=== PATIENT | male | born 1990 ===

== ENCOUNTER 2020-11-18 14:09 | Emergency (ER) | payer MEDICAID ==
[~2020-11-18] VITALS: Ht 177.8 cm; Wt 70.6 kg
[2020-11-18 14:27] VITALS: BP 135/105
--- NOTE | 2020-11-18 14:49 | NUR ---
COUNTER CHECKER: PT TO ROOM FROM [facility]
[2020-11-18] MEDS ORDERED: PERMETHRIN CRM 5%, 60GM TP ONE (15:00)
--- NOTE | 2020-11-18 15:29 | NUR ---
Pt given medication. Pt aware to go home wash all clothes and linis. Applye cream to entire body and follow up with primary care.
== END 2020-11-18 15:31 | disposition home or self-care (01) ==
LOC: ED 14:20
DX: L30.9 Dermatitis, unspecified (principal)
CPT/HCPCS: 99282

== ENCOUNTER 2020-11-22 15:05 | Emergency (ER) | payer MEDICAID ==
[~2020-11-22] VITALS: Ht 177.8 cm; Wt 72.6 kg
--- NOTE | 2020-11-22 15:28 | NUR ---
PT CHANGED INTO GOWN, MONITORS IN PLACE. PT STATES BUGS ARE VERY PRESISTENT AND COMING OUT OF HIS FEET AND ARMS. HE HAD TO SPRAY HIMSELF & HIS VAN DOWN WITH BLEACH. CALL LIGHT WITHIN REACH
--- NOTE | 2020-11-22 15:34 | NUR ---
PA AT BS
[2020-11-22 16:21] VITALS: BP 130/71
== END 2020-11-22 16:23 | disposition home or self-care (01) ==
LOC: ED 16:15
DX: F15.10 Other stimulant abuse, uncomplicated (principal); B35.3 Tinea pedis; F17.210 Nicotine dependence, cigarettes, uncomplicated
CPT/HCPCS: 99283; 99406

== ENCOUNTER 2021-01-18 14:41 | Emergency (ER) | payer MEDICAID ==
[~2021-01-18] VITALS: Ht 172.7 cm; Wt 68.2 kg
[2021-01-18 14:52] VITALS: BP 164/120
--- NOTE | 2021-01-18 15:14 | NUR ---
CC OF "WHITE STUFF COMING OUT OF MY SKIN". PT PICKING AT ONE SPOT ON LEFT ARM, SKIN LOOKS CDI. PT APPEARS WELL GROOMED. NO BUGS NOTED. PT UNABLE TO STOP SQUEEZING AREA ON SKIN. DENIES DRUGS AND ALCOHOL USE.
--- NOTE | 2021-01-18 15:32 | NUR ---
PT WALKED OUT OF ROOM, STATING "IM LEAVING". NOTIFIED.
== END 2021-01-18 16:02 | disposition home or self-care (01) ==
LOC: ED 15:00
DX: F15.10 Other stimulant abuse, uncomplicated (principal); F22 Delusional disorders
CPT/HCPCS: 99281

== ENCOUNTER 2021-02-21 08:41 | Emergency (ER) | payer MEDICAID ==
[~2021-02-21] VITALS: Ht 177.8 cm; Wt 71.0 kg
[2021-02-21 08:49] VITALS: BP 114/85
== END 2021-02-21 10:05 ==
LOC: ED 10:00
DX: B86 Scabies (principal); F17.200 Nicotine dependence, unspecified, uncomplicated
CPT/HCPCS: 99283